=== PATIENT | male | born 1965 | race Caucasian/White ===

== ENCOUNTER → 2017-02-25 | Outpatient (CLI) | payer OTHER ==
[~2017-02-25] VITALS: Ht 175.3 cm; Wt 108.9 kg
[~2017-02-25] MED LIST: GLUCOPHAGE500 MG PO; HYZAAR 100-11 TABLET PO; LIPITOR20 MG PO; LO-DOSE ASPIRIN81 M2 PO; SYNTHROID50 MCG PO
[2017-02-25 12:31] LABS: POINT-OF-CARE METER ID UU13113694
[2017-02-25 12:49] LABS: ANION GAP 12 MEQ/L (2-14); CHLORIDE 101 MEQ/L (99-109); GFR ESTIMATE (CALCULATED) > 59 mL/min/; GLUCOSE 110 mg/dL (70-99); POTASSIUM 3.7 MEQ/L (3.7-5.4); SAMPLE HEMOLYSIS CHECK 0; SAMPLE ICTERIC CHECK 0; SAMPLE LIPEMIA CHECK 0; SODIUM 138 MEQ/L (136-147); UREA NITROGEN (BUN) 5 mg/dL (9-23)
[2017-02-25 15:56] LABS: POINT-OF-CARE METER ID UU13113675
== END | disposition home or self-care (01) ==
LOC: AMB 02-04 12:00
PROVIDERS: Internal Medicine Gastroenterology
DX: Z12.11 Encounter for screening for malignant neoplasm of colon (principal); D12.3 Benign neoplasm of transverse colon; K63.5 Polyp of colon; K57.30 Diverticulosis of large intestine without perforation or abscess without bleeding; K29.70 Gastritis, unspecified, without bleeding; K21.9 Gastro-esophageal reflux disease without esophagitis; E11.9 Type 2 diabetes mellitus without complications; I10 Essential (primary) hypertension; G47.30 Sleep apnea, unspecified; Z87.891 Personal history of nicotine dependence; Z79.82 Long term (current) use of aspirin; Z68.36 Body mass index [BMI] 36.0-36.9, adult; Z79.84 Long term (current) use of oral hypoglycemic drugs; Z88.8 Allergy status to other drugs, medicaments and biological substances
CPT/HCPCS: 80048; 82948; 88173; 88305; 88342 TC; 93005; B4087; C1726; J0330; J2250; J2405; J3010